=== PATIENT | female | born 1945 | race Caucasian/White ===

== ENCOUNTER → 2021-06-06 | Outpatient (CLI) | payer MEDICARE | LOC: HEART CORB 09:20 | DX: R06.00 Dyspnea, unspecified (principal); R77.8 Other specified abnormalities of plasma proteins; R06.02 Shortness of breath; I20.8 Other forms of angina pectoris; Z86.711 Personal history of pulmonary embolism; Z79.01 Long term (current) use of anticoagulants | CPT/HCPCS: 78452; A9502; J2785 ==